=== PATIENT | female | born 1975 | race Caucasian/White ===

== ENCOUNTER 2017-10-04 14:32 | Emergency (ER) | payer MEDICAID ==
[~2017-10-04] VITALS: Ht 170.2 cm; Wt 70.3 kg
[~2017-10-04 14:32] MED LIST: EXCEDRIN MIGRA1 EAC1 PO; UNOBMED
[2017-10-04] MEDS ORDERED: NKM (14:45)
[2017-10-04] MEDS ORDERED: Ketorolac 60mg Inj IM ONE (15:15)
[2017-10-04 15:50] VITALS: BP 120/70
[2017-10-04] MEDS ORDERED: TAMIFLU75 MG ORAL (15:50)
[2017-10-04] MEDS ORDERED: IBUPROFEN600 MG ORAL (15:50)
[2017-10-04] MEDS ORDERED: PROMETHAZINE-C118 M1 ORAL (15:50)
--- NOTE | 2017-10-04 20:23 | Emergency Room Report ---
History of Present Illness General Chief Complaint: Upper Respiratory Illness Source: Patient Present Illness [facility] The patient is a 42-year-old female presenting for fevers, myalgia, cough, sore throat, headache since yesterday. She denies any known sick contacts recent travel. She did not have a flu shot this year. Pain is an 8/10 total body ache. She denies any other symptoms including N, V, SOB, CP, neck pain Allergies: Coded Allergies: NO KNOWN ALLERGIES (Unverified Allergy, Unknown, 09/24/16) Patient History Past Medical History: see triage record Pertinent Family History: none Last Menstrual Period: 09/21/17 Now: No Reviewed Nursing Documentation: PMH: Agreed, PSxH: Agreed Nursing Documentation-PMH Hx Neurological Problems: Yes - Migraines, "brain surgery" 2016 due to migraines. Review of Systems All Other Systems: negative except mentioned in HPI Physical Exam Vital Signs Date Time Temp Pulse Resp B/P (MAP) Pulse Ox O2 Delivery O2 Flow Rate FiO2 10/04/17 14:42 99.0 111 19 119/71 96 Room Air Sp02 EP Interpretation: reviewed, normal General Appearance: no apparent distress, alert, GCS 15, non-toxic Head: normocephalic, atraumatic ENT: hearing grossly normal, no angioedema, normal voice, nasal congestion, pharyngeal erythema Neck: full range of motion, supple/symm/no masses Respiratory: chest non-tender, lungs clear, normal breath sounds, speaking full sentences, wheezing Cardiovascular #1: regular rate, rhythm, no edema Gastrointestinal: normal bowel sounds, non tender, soft, non-distended, no guarding, no rebound Musculoskeletal: back normal, gait/station normal, normal range of motion, non- tender Neurologic: alert, oriented x3, responsive, motor strength/tone normal, sensory intact, speech normal Psychiatric: judgement/insight normal, memory normal, mood/affect normal, no suicidal/homicidal ideation Skin: normal color, no rash, warm/dry, well hydrated Lymphatic: no adenopathy Medical Decision Making PA Attestation Dr. Ponce is my supervising physician. Patient management was discussed with my supervising physician Diagnostic Impression: Primary Impression: Influenza ER Course The patient is a 42-year-old female presenting for fevers, myalgia, cough, sore throat, headache since yesterday. Differential diagnosis include but not limited to influenza, pharyngitis, sinusitis, AOM, bronchitis, PNA Physical exam: Patient is afebrile. Lethargic HEENT exam reveals pharyngeal erythema. No exudate. Nasal congestion Lungs are clear to auscultation bilaterally. No respiratory distress Skin warm and dry The patient will be treated for influenza with prescription for Motrin, Tamiflu , and cough medication. She is given strict ER precautions. he was told this is highly contagious. Last Vital Signs Date Time Temp Pulse Resp B/P (MAP) Pulse Ox O2 Delivery O2 Flow Rate FiO2 10/04/17 15:55 98.9 105 19 120/70 96 Room Air Status: improved Disposition: HOME, SELF-CARE Condition: Improved Scripts Oseltamivir Phosphate (Tamiflu) 75 Mg Capsule 75 MG ORAL TWICE A DAY, #10 CAP Prov: NIMO RODRIGUEZ.A. 10/04/17 Codeine/Promethazine Hcl* (PROMETHAZINE-CODEINE SYRUP*) 118 Ml Syrup 5 ML ORAL Q6H Y for For Cough, #118 ML 0 Refills Prov: NIMO RODRIGUEZ.A. 10/04/17 Ibuprofen* (MOTRIN*) 600 Mg Tablet 600 MG ORAL Q8H Y for For Pain, #30 TAB 0 Refills Prov: NIMO RODRIGUEZ P.A. 10/04/17 Patient Instructions: Influenza, Adult Additional Instructions: I discussed my findings with the patient. All questions and concerns have been answered. Treatment and medication compliance have been addressed. I advised the patient that they need to follow up with PMD in 3-5 days. Return to ED if pain remains or worsens, cough worsens or remains, you notice blood in your sputum, you notice wheezing, you experience a fever, or if needed for any reason. Patient verbalized understanding of discharge instructions. NIMO RODRIGUEZ Oct 04, 2017 20:23
== END 2017-10-04 15:55 | disposition home or self-care (01) ==
LOC: MERGE 14:50 → EMR 14:50
DX: J11.1 Influenza due to unidentified influenza virus with other respiratory manifestations (principal)
CPT/HCPCS: 96372; 99283